=== PATIENT | female | born 1980 | race Caucasian/White ===

== ENCOUNTER 2022-12-12 14:49 | Emergency (ER) | payer BC, SELFPAY ==
[2022-12-12 14:50] VITALS: BP 145/100; PULSE 66; RESP 16; TEMP 36.8; O2SAT 98; BMI 43.7
--- NOTE | 2022-12-12 15:12 | EX.ED.DYSGE1 ---
HPI <CHRIS Mejia - Last Filed: 12/12/22 15:19> History of Present Illness Chief Complaint: Ear Problem Narrative Narrative: Patient is a 42-year-old female with history of anxiety, depression, ADHD who presents to the emergency department with 1.5 weeks of right ear pain. Patient states she went to a concert 2 weeks ago and since then been having pain. Patient has pain to the right ear she did see urgent care 1 week ago and was placed on Zithromax and an eardrop. Patient still having pain and has moved into her face. Patient is penicillin allergic, she denies any nausea or vomiting. Denies any fever or chills. She is still smoking cigarettes. PFSH <CHRIS Mejia - Last Filed: 12/12/22 15:19> [facility] Medical History (Updated 12/12/22 @ 15:18 by CHRIS Mejia) Anemia Hypercholesterolemia Hypertension Home Medications amlodipine 5 mg tablet 5 mg PO DAILY 12/12/22 [History Last Taken Unknown] atorvastatin 20 mg tablet 20 mg PO DAILY 12/12/22 [History Last Taken Unknown] cefdinir 300 mg capsule 300 mg PO BID 10 days #20 caps 12/12/22 [Rx Last Taken Unknown] dextroamphetamine-amphetamine ER 30 mg 24hr capsule,extend release 30 mg PO BID 12/12/22 [History Last Taken Unknown] fluticasone propionate 50 mcg/actuation nasal spray,suspension (Flonase Allergy Relief) 2 spray intranasal DAILY #16 grams 12/12/22 [Rx Last Taken Unknown] lisinopril 40 mg tablet 40 mg PO DAILY 12/12/22 [History Last Taken Unknown] metoprolol succinate 100 mg tablet,extended release 24 hr 100 mg PO DAILY 12/12/22 [History Last Taken Unknown] venlafaxine 75 mg tablet 75 mg PO DAILY 12/12/22 [History Last Taken Unknown] Allergy/AdvReac Type Severity Reaction Status Date / Time Penicillins Allergy Unknown PT UNSURE Verified 12/12/22 14:52 OF REACTION Surgical History (Updated 12/12/22 @ 15:13 by Felicita Flowers) H/O tubal ligation Social History Smoking Status: Current every day smoker tobacco type: cigarettes ROS <CHRIS Mejia - Last Filed: 12/12/22 15:19> ROS ED ROS Narrative Constitutional: Negative for fever, chills, weight loss, weakness Eyes: Negative for vision loss, vision change, double vision ENT: Negative for any sore throat. Positive for right ear pain, sinus congestion Cardiovascular: Negative for any chest pain, tightness, palpitations Respiratory: Negative for any cough, sputum production, hemoptysis, dyspnea, dyspnea on exertion, orthopnea Gastrointestinal: Negative for any abdominal pain, nausea, vomiting, diarrhea, constipation, blood in stool, blood in vomit : Negative for any urinary frequency, dysuria, retention, blood in urine Muscle skeletal: Negative for any muscle joint pain, stiffness, myalgias, arthralgias, neck pain, back pain Neurological: Negative for any headache, syncope, numbness or tingling, dizziness Skin: Negative for any rashes, lumps, itching, abrasions, lacerations Psychiatric: Negative for any depression, anxiety, stress, suicidal ideation, homicidal ideation Hematologic: Negative for any easy bruising, excessive bruising, easy bleeding Allergies: Negative for any eczema, hives, rash EXAM <CHRIS Mejia - Last Filed: 12/12/22 15:19> Physical Exam Narrative Exam Narrative: Vital signs reviewed. HEET: Head normocephalic atraumatic, patient's left TM was unremarkable. Right TM shows redness, bulging. This consistent with acute otitis media, is no evidence of any otitis externa. Posterior pharynx is clear, moist mucous membranes. Nares clear bilaterally. Neck: Supple with no lymphadenopathy or tenderness. No signs of meningismus, negative jolt sign. Cardiac: Regular rate and rhythm no murmurs gallops or rubs, equal peripheral pulses bilaterally. Respiratory: Lungs clear to auscultation bilaterally. No chest tenderness. Abdomen: Soft, nontender, nondistended. No abdominal bruit or pulsatile masses. No hepatosplenomegaly Extremities: No peripheral edema, no signs of gross trauma or deformity. Active full range of motion of all extremities. Neuro: Cranial nerves II through XII intact, no focal neurological deficits. Skin: Clean dry and intact with no rash, purpura, petechiae, vesicles or pustules. Backs/flank: No CVA tenderness, no midline spinal tenderness, no deformity. Psych: Normal mood and affect. No SI, HI or acute psychosis. Const Vital Signs: 12/12/22 14:50 Temperature 98.2 F Temperature Source Temporal Pulse Rate 66 Respiratory Rate 16 Blood Pressure 145/100 H Blood Pressure Mean 115 Pulse Ox 98 Oxygen Delivery Method Room Air <Dr. Malcom Jacques DO - Last Filed: 12/12/22 15:24> Physical Exam Const Vital Signs: 12/12/22 14:50 Temperature 98.2 F Temperature Source Temporal Pulse Rate 66 Respiratory Rate 16 Blood Pressure 145/100 H Blood Pressure Mean 115 Pulse Ox 98 Oxygen Delivery Method Room Air MDM <CHRIS Mejia - Last Filed: 12/12/22 15:19> [facility] Treatment and Re-Evaluation :: Patient appears generally well, patient appears nontoxic, vital signs are stable. Patient presents to the emergency department for continued right ear pain post antibiotics. Physical examination insistent with acute otitis media. Patient has no pain along the mastoid, no evidence of any mastoiditis. Patient has no cervical pain. Patient has facial pain as well which I am concerned that she is also having acute sinusitis. Patient is penicillin allergic however she is unsure what her allergy is. Patient replaced on Omnicef twice a day for 10 days. She also given Flonase. She instructed to follow-up with her PCP. She was given strict return precaution. All questions answered, patient stable for discharge <Dr. Malcom Jacques, - Last Filed: 12/12/22 15:24> [facility] Narrative Medical decision making narrative: I have personally performed a face to face assessment of the patient and have reviewed the DOROTHY Note. I performed a substantive portion of the visit including all aspects of the following. My bashir findings include: History: Patient presents with right ear and facial pain that has been getting worse over the past 2 weeks. Patient states she was given a prescription for Zithromax for otitis media. Patient was also given eardrops for otitis externa last week. Patient states she has completed the course of antibiotics. Patient states she does not feel any better. Patient admits to some decreased hearing from her right ear as well as some dizziness. Patient admits to a fever of 101 at home. Patient also admits to some right maxillary and frontal sinus pressure. Patient admits to some nausea and vomiting. Exam: Vital signs are stable except for slightly elevated blood pressure of 145/100. Patient is afebrile. Patient is in no acute distress. Oral mucosa is pink and moist. Oropharynx is clear. Airway is patent. Nasal mucosa is pink and moist. There is tenderness over the right frontal and maxillary sinuses. The right tympanic membrane was erythematous and slightly bulging. The external auditory canal was clear. The left tympanic membrane and external auditory canal are clear. Neck is supple. Trachea is midline. There is no JVD. Heart was regular rate and rhythm. Lungs are clear and equal bilaterally. Cranial nerves II through XII are intact. There are no focal motor or sensory deficits noted. Medical Decision Making: Patient was advised that this is from otitis media and sinusitis. Patient has a history of penicillin allergies but does not know the reaction she has with penicillin. Patient was given a prescription for Omnicef. Patient was also given a prescription for Flonase. Patient was instructed to drink plenty of fluids. Patient was instructed to continue Tylenol and ibuprofen as needed for pain. Patient was instructed to follow-up with her primary care physician in 5 to 7 days for reevaluation. Patient understood and was agreeable with the plan. All questions were answered. Discharge Plan Triage Chief Complaint: Ear Problem ED Midlevel Provider: Les Escobar ED Provider: Malcom Jacques Dx/Rx/DC Orders Prescriptions: No Action amlodipine 5 mg tablet 5 mg PO DAILY atorvastatin 20 mg tablet 20 mg PO DAILY lisinopril 40 mg tablet 40 mg PO DAILY metoprolol succinate 100 mg tablet extended release 24 hr 100 mg PO DAILY dextroamphetamine-amphetamine 30 mg capsule,extended release 24hr 30 mg PO BID venlafaxine 75 mg tablet 75 mg PO DAILY Primary Care Provider: Jaison Quintana,Out of Referrals: Jaison Quintana,Out of [Primary Care Provider] -
[2022-12-12] MEDS: Cefdinir 300 MG Capsule PO (15:27)
== END 2022-12-12 15:31 | disposition home or self-care (01) ==
LOC: ED 15:30
PROVIDERS: Emergency Provider Emergency Medicine; Visit Provider Emergency Medicine
DX: H66.91 Otitis media, unspecified, right ear (principal); J32.9 Chronic sinusitis, unspecified; F17.210 Nicotine dependence, cigarettes, uncomplicated; E78.00 Pure hypercholesterolemia, unspecified; Z79.899 Other long term (current) drug therapy
CPT/HCPCS: 99283

== ENCOUNTER 2022-12-20 14:50 | Emergency (ER) | payer BC, SELFPAY ==
[2022-12-20 14:51] VITALS: BP 145/95; PULSE 69; RESP 18; TEMP 35.4; O2SAT 97; BMI 40.3
[2022-12-20 15:25] VITALS: RESP 16
--- NOTE | 2022-12-20 15:27 | EX.ED.VIS.UR ---
HPI HPI - URI History of Present Illness Chief Complaint: Ear Problem Detail of Chief Complaint: Right earache for weeks. Informant: patient and spouse/S.O. Onset/Context/Timing Onset: Weeks Context: Gradual Onset Timing: Continuous Current Severity: Mild Maximum Severity: Moderate Associated Symptoms Associated Symptoms: Positive for Nausea Narrative Narrative: 42-year-old female history of hypertension, anxiety and depression. Was seen in urgent care 2 to 3 weeks ago diagnosed with right otitis externa and media. Was placed on both eardrops and Zithromax Z-MAYDA. Took that without significant relief. Was seen in the emergency department here about a week ago placed on Omnicef. States she still having cracking and popping in her right ear with some discomfort. Also mild sore throat. Prior similar symptoms: Yes Recent Illness/Hospitalization: No ROS ROS ED ROS Narrative Right ear ache. Review of Systems ROS Unobtainable: Denies due to encephalopathy Constitutional Constitutional ED: Denies chills or fever(s) Eyes Eyes: Denies blurry vision ENT ENT ED: Reports ear pain, rhinorrhea and sore throat Cardiovascular Cardiovascular: Denies chest pain Respiratory/Chest Respiratory/Chest: Denies cough or dyspnea Gastrointestinal Gastrointestinal: Denies abdominal pain Genitourinary Genitourinary ED: Denies dysuria Musculoskeletal Musculoskeletal: Denies arthralgias Integumentary Denies abscess Neurologic Neurologic: Denies headache(s) Psychiatric Psychiatric: Denies anxiety Endocrine Endocrinology: Denies cold intolerance Hematologic/Lymphatic Hematologic/Lymphatic: Denies easy bleeding Allergic/Immunologic Allergic/Immunologic ED: Denies mouth swelling [facility] Medical History Anemia Hypercholesterolemia Hypertension Home Medications amlodipine 5 mg tablet 5 mg PO DAILY 12/12/22 [History Last Taken Unknown] atorvastatin 20 mg tablet 20 mg PO DAILY 12/12/22 [History Last Taken Unknown] cefdinir 300 mg capsule 300 mg PO BID 10 days #20 caps 12/12/22 [Rx Last Taken Unknown] dextroamphetamine-amphetamine ER 30 mg 24hr capsule,extend release 30 mg PO BID 12/12/22 [History Last Taken Unknown] fluticasone propionate 50 mcg/actuation nasal spray,suspension (Flonase Allergy Relief) 2 spray intranasal DAILY #16 grams 12/12/22 [Rx Last Taken Unknown] lisinopril 40 mg tablet 40 mg PO DAILY 12/12/22 [History Last Taken Unknown] metoprolol succinate 100 mg tablet,extended release 24 hr 100 mg PO DAILY 12/12/22 [History Last Taken Unknown] venlafaxine 75 mg tablet 75 mg PO DAILY 12/12/22 [History Last Taken Unknown] prednisone 20 mg tablet 40 mg (2 x 20 mg) PO DAILY 7 days #14 tabs 12/20/22 [Rx Last Taken Unknown] Allergy/AdvReac Type Severity Reaction Status Date / Time Penicillins Allergy Unknown PT UNSURE Verified 12/20/22 14:53 OF REACTION Surgical History H/O tubal ligation Social History household members: spouse Smoking Status: Current every day smoker tobacco type: cigarettes EXAM Physical Exam Narrative Exam Narrative: 42-year-old female no acute distress. Vital signs stable afebrile. H EENT exam left TM and canal normal. Right canal normal. TM has fluid behind the right eardrum. Is mildly retracted. No significant redness. Posterior pharynx normal. No erythema or exudate. No trouble swallowing or breathing. Neck nontender no lymphadenopathy. Lungs clear. Heart regular rhythm. Abdomen soft nontender. Moving all 4 extremities. Const Vital Signs: 12/20/22 14:51 12/20/22 15:25 Temperature 95.8 F L Temperature Source Temporal Pulse Rate 69 Respiratory Rate 18 16 Blood Pressure 145/95 H Blood Pressure Mean 111 Pulse Ox 97 Oxygen Delivery Method Room Air Positive well nourished and well developed; Negative for cachectic or contractures General Appearance ED: well developed and NAD; Negative for cachectic, contractures, cyanotic, diaphoretic or pallor Nutritional Appearance: Negative for cachectic HEENT Reports moist mucous membranes; Denies dry mucous membranes normocephalic and atraumatic; Negative for scalp tenderness Face and Sinus: Negative for sinus tenderness, maxillary instability or facial tenderness Mouth ED: No dry mucous membranes Mouth: No dry mucous membranes Teeth and Gingiva: Negative for caries Throat: posterior oropharynx normal; Negative for tonsils abnormal Eyes PERRL and EOMs intact bilaterally General Eye ED: Negative for pale conjunctiva Neck no lymphadenopathy, supple, no meningeal signs and no JVD General: Negative for anterior neck swelling or lymphadenopathy Resp normal respiratory effort and clear to auscultation bilaterally Effort and Inspection: Negative for retractions Auscultation: Negative for rales, rhonchi, wheezes or diminished lung sounds Cardio S1 normal heart sound, S2 normal heart sound and no murmurs Rate: regular rate Rhythm: regular rhythm GI non-tender, non-distended and no masses Inspection: Negative for abdominal distention Auscultation: normoactive bowel sounds Palpation: soft; Negative for tender or guarding Back/Spine no CVA tenderness and normal ROM General Back: Negative for CVA tenderness Cervical Spine: Negative for cervical spine tenderness Thoracic Spine / Upper Back: Negative for thoracic spinal tenderness Lumbar Spine / Lower Back: Negative for lumbar spinal tenderness Sacrum: Negative for tenderness Extremity normal to inspection and full ROM General Extremety ED: Negative for cyanosis or tenderness General Extremity: Negative for cyanosis Neuro oriented x3 and CN's II-XII intact bilaterally Sensorium / Orientation: alert, oriented to person, oriented to place and oriented to time; Negative for orientation impaired, lethargic or stuporous Motor Exam: strength 5/5 throughout Psych mental status grossly normal Appearance: Negative for other Attitude: No agitated Mood & Affect: Negative for depressed, anxious or tearful Skin General Skin Exam: Negative for jaundice or pallor Lesions: no lesions Rashes: no rashes Trauma: Negative for abrasion MDM MDM MDM Narrative Medical decision making narrative: 42-year-old female with 3-week history of right earache. She is already taken a full course of Zithromax and is currently finishing a course of Omnicef. There is no signs of recurrent infection at this time. She does have some fluid behind her right eardrum. The canals are unremarkable as is her posterior pharynx. This could be from seasonal allergies and drainage. It may just be fluid behind her eardrum on the right. She be placed on prednisone 40 mg a day for a week. Instructed follow-up with ear nose and throat. History & Record Review Discussion w/independent historian: Patient Discharge Plan Triage Chief Complaint: Ear Problem ED Provider: Paulino Ruiz Dx/Rx/DC Orders Clinical Impression: Acute ear pain, Acute effusion of right ear Prescriptions: New prednisone 20 mg tablet 40 mg PO DAILY 7 Days Qty: 14 0RF No Action amlodipine 5 mg tablet 5 mg PO DAILY atorvastatin 20 mg tablet 20 mg PO DAILY lisinopril 40 mg tablet 40 mg PO DAILY metoprolol succinate 100 mg tablet extended release 24 hr 100 mg PO DAILY dextroamphetamine-amphetamine 30 mg capsule,extended release 24hr 30 mg PO BID venlafaxine 75 mg tablet 75 mg PO DAILY cefdinir 300 mg capsule 300 mg PO BID 10 Days Qty: 20 0RF fluticasone propionate [Flonase Allergy Relief] 50 mcg/actuation spray,suspension 2 spray intranasal DAILY Qty: 16 0RF Rx Instructions: administer into each nostril Primary Care Provider: ARIAN BRAGA Referrals: ARIAN BRAGA [Other] Mehdi Luong MD [Med Staff - Active Staff] - As soon as possible Activity Restrictions/Additional Instructions: Prednisone daily for the next 7 days. 40 mg a day. Motrin and Tylenol for pain. Call and follow-up with the ear nose and throat doctors across the street Dr. Mehdi Luong and Dr. Luis Bonner. You have fluid behind your right eardrum. As that resolves you should start feeling better. Disposition Disposition: Home, Self Care
== END 2022-12-20 15:28 | disposition home or self-care (01) ==
PROVIDERS: Emergency Provider Emergency Medicine; Visit Provider Emergency Medicine
DX: H92.01 Otalgia, right ear (principal); J02.9 Acute pharyngitis, unspecified; F17.210 Nicotine dependence, cigarettes, uncomplicated; R11.0 Nausea; E78.00 Pure hypercholesterolemia, unspecified; I10 Essential (primary) hypertension; F41.9 Anxiety disorder, unspecified; F32.A Depression, unspecified; Z79.52 Long term (current) use of systemic steroids
CPT/HCPCS: 99282